=== PATIENT | male | born 1990 | race Caucasian/White ===

== ENCOUNTER 2016-12-18 17:11 | Outpatient (CLI) | payer OTHER | END 2016-12-18 17:12 | disposition EMS.NT | LOC: EMS 17:11 | PROVIDERS: ATTEND Surgery | DX: S61.412A Laceration without foreign body of left hand, initial encounter (principal); V23.4XXA Motorcycle driver injured in collision with car, pick-up truck or van in traffic accident, initial encounter; Y92.410 Unspecified street and highway as the place of occurrence of the external cause ==

== ENCOUNTER 2017-07-13 13:47 | Emergency (ER) | payer OTHER ==
--- NOTE | 2017-07-13 14:41 | ED Physician Documentation ---
PD HPI UPPER EXT INJURY - Stated complaint Stated Complaint: FINGER LAC - Chief complaint Chief Complaint: Wound - History obtained from History obtained from: Patient - History of Present Illness Location: Right, Finger (index) Type of injury: Laceration (from utility knife) Where injury occurred: Work Review of Systems Neurologic: denies: Focal weakness, Numbness PD PAST MEDICAL HISTORY - Past Medical History Past Medical History: No - Past Surgical History Past Surgical History: Yes General: Other - Present Medications Home Medications: Ambulatory Orders Medication Instructions Recorded Confirmed Ciprofloxacin [Cipro] 500 mg PO Q12H #14 tablet 10/31/14 Hydrocodone/Acetaminophen 1 - 2 each PO Q6H PRN #15 tablet 10/31/14 [Hydrocodon-Acetaminophen 5-325] - Allergies Allergies/Adverse Reactions: Allergies Allergy/AdvReac Type Severity Reaction Status Date / Time codeine Allergy Respiratory Verified 10/31/14 11:10 - Social History Does the pt smoke?: Yes Smoking Status: Current every day smoker Does the pt drink ETOH?: Yes Does the pt have substance abuse?: No - Immunizations Immunizations are current?: Yes PD ED PE NORMAL - Vitals Vital signs reviewed: Yes - General General: Alert and oriented X 3, No acute distress, Well developed/nourished - Extremities Extremities: Other (right index finger with vertical lac dorsally from mid proximal to mid middle phalanx, down to fatty tissue but not involving tendon. No FB. It does open with flexion of the finger. ) - Neuro Neuro: No motor deficit, No sensory deficit Results - Vitals Vitals: Oxygen O2 Source Room air PD MEDICAL DECISION MAKING - ED course Complexity details: considered differential (he would prefer not sutures, so will steristrip and splint), d/w patient Departure - Departure Disposition: 01 Home, Self Care Clinical Impression: Finger laceration Qualifiers: Encounter type: initial encounter Finger: index finger Damage to nail status: without damage Foreign body presence: without foreign body Laterality: right Qualified Code(s): S61.210A - Laceration without foreign body of right index finger without damage to nail, initial encounter Condition: Stable Record reviewed to determine appropriate education?: Yes Instructions: ED Laceration Hand Comments: Finger splint to protect the laceration for about a week. He can have it off at times for gentle motion. Allow the Steri-Strips to fall off on their own over the next days to week. Recheck if signs of infection. Tylenol or ibuprofen if needed for pain. Forms: Activity restrictions Discharge Date/Time: 07/13/17 15:02
[2017-07-13 15:03] VITALS: BP 130/63
== END 2017-07-13 15:02 | disposition home or self-care (01) ==
LOC: ED 13:47
DX: F17.200 Nicotine dependence, unspecified, uncomplicated (principal); S61.210A Laceration without foreign body of right index finger without damage to nail, initial encounter; W45.8XXA Other foreign body or object entering through skin, initial encounter; Y99.0 Civilian activity done for income or pay
CPT/HCPCS: 1040M; 29130; 99282; 99283